=== PATIENT | male | born 1965 | race Caucasian/White ===

== ENCOUNTER 2022-12-07 14:39 | Observation (INO) | payer OTHER ==
--- OUTSIDE RECORDS SUMMARY | 2022-12-07 14:42 | XMS REPORT | Continuity of Care Document ---
:1965 Author Organization [facility] t Address [address] [place] [place] [address] Care Team Providers Name Role Phone Nhan Dominguez Attending Clinician Unavailable Devin De Luna Admitting Clinician Unavailable Payers Payer Name Policy Type Policy Number Effective Date Expiration Date S ource Problems This patient has no known problems. Allergies, Adverse Reactions, Alerts Allergy Allergy Status Severity Reaction(s) Onset Inactive Treating Comm ents Source Name Type Date Date Clinician No Known DA Active U [facility] Allergie 01-18 [facility] 00:00: d 00 [facility] Medications This patient has no known medications. Procedures This patient has no known procedures. Encounters Start End Encounter Admission Attending Care Care Encounter Source Date/Time Date/Time Type Type Clinicians Facility Department ID 2022-01-18 2022-01-18 Outpatient EL Nhan Dominguez [facility] LA0 [id number] [facility] 12:01:00 12:01:[address] [place] [address] Results Test Description Test Time Test Comments Results Result [facility] e Comments - CT ABD PELVIS W 2022-01-18 WO CONT 14:20:00 [facility] Rg : 1965 Sex: M Name: JANELLE BENTON [facility] Audie : 1965 Age/S: 56 / M [id number] Unit #: [id number] Loc: [place] [address] Phys: Nhan Dominguez MD Acct: [id number] Dis Date: Status: REG CLI PHONE #: [phone] Exam Date: 01/18/2022 4525 FAX #: Reason: KIDNEY STONE EXAMS: CPT: [id number] CT ABD PELVIS W WO CONT [id number] EXAMINATION: - CT ABD PELVIS W WO CONT. LOCATION: B2. HISTORY: KIDNEY STONE. COMPARISON: None. TECHNIQUE: CT abdomen and pelvis was performed without and with the use of IV contrast (100 mL Isovue 300). Sagittal and coronal reconstructed images were available for review. This exam was performed according to our departmental dose-optimization program, which includes automated exposure control, adjustment of the mA and/or kV according to patient size, and/or use of iterative reconstruction technique. Unless otherwise specified, incidental findings do not require dedicated imaging follow-up. FINDINGS: Lower chest: No acute pulmonary infiltrates are identified. Heart size is normal. Abdomen: There is diffuse hypoattenuation of the liver. Couple calcified right hepatic granulomas are seen. Punctate calcification is seen at the pancreatic head. 2.8 cm left adrenal gland myelolipoma is seen. There is focal cortical scarring in the right superior kidney. Six nonobstructive right lower renal stones are seen measuring up to 1.5 cm. The spleen, right adrenal gland, and left kidney appear within normal limits. There is long segment hypodense wall thickening of the ascending colon fatty changes in the colonic wall. There is no evidence of bowel obstruction. The appendix is mildly dilated at 8mm with no adjacent inflammatory changes to suggest appendicitis. No pneumoperitoneum or ascites is identified. There is no mesenteric or retroperitoneal adenopathy. There is a small fat-containing umbilical hernia. Pelvis: The urinary bladder appears normal. No inguinal adenopathy is identified. Bones/soft tissues: PAGE 1 Signed Report (CONTINUED) Name: JANELLE BENTON [facility] Audie : 1965 Age/S: 56 / M [id number] Unit #: [id number] Loc: [place] [address] Phys: Nhan Dominguez MD Acct: [id number] Dis Date: Status: REG CLI PHONE #: [phone] Exam Date: 01/18/2022 8139 FAX #: Reason: KIDNEY STONE EXAMS: CPT: [id number] CT ABD PELVIS W WO CONT 41607 (Continued) 4 mm focal sclerosis is seen in the right hemisacrum, likely representing a bone island. No acute osseous abnormality is identified. No aggressive lytic or blastic lesions are seen. IMPRESSION: Six nonobstructive right lower renal stones measuring up to 1.5 cm. Hepatic steatosis. 2.8 cm left adrenal gland myelolipoma. Chronic ascending colitis. Other findings as described. at 1420 Reported and signed by: Shabbir Cabral M.D. CC: Devin De Luna MD; Nhan Dominguez MD Technologist:Monika Peacock, RT(R) CTDI: DLP: Trnscb Date/Time: 01/18/2022 (142) [email or web address] Orig Print D/T: S: 01/18/2022 (5973) PAGE 2 Signed Report CREATININE W ESTIMATED GFR 2022-01-18 13:33:00 Test Item Value Reference Range Interpretation Comme nts GLOMERULAR FILTRATION RATE (test code = GFR) >=60 max estimate estG FR >60 CREATININE (test code = CREAT) 1.2 MG/DL 0.8-1.3 N
[2022-12-07] MEDS ORDERED: ASPIRIN 81 MG CHEWABLE TABLET ONE (15:31)
[2022-12-07 15:33] LABS: Hematocrit 51.5 % (39.6-49.0); Lymphocytes % 30.5 % (15.3-44.8); MCV 85.8 fL (80-100); MPV 7.9 fL (7.6-11.3); Platelets 197 thou/uL (152-406)
[2022-12-07 15:34] LABS: Protime INR 0.99
--- NOTE | 2022-12-07 16:08 | EDPHYS ---
Physician Documentation [facility] Name: Albaro Walden Jr Age: 57 yrs Sex: Male : 1965 Arrival Date: 12/07/2022 Time: 14:39 Bed 19 Private MD: ED Physician Nelson Gardner HPI: 12/07 15:11 This 57 yrs old Male presents to ER via Ambulatory with complaints of Chest Pain. snw 15:11 The patient or guardian reports chest pain that is located primarily in the anterior snw chest wall, left. Onset: intermittent CP over the week. + NTG several times today, mentioned to Dr. De Luna at appt. Pt sent to ED for eval.. The pain does not radiate. Severity of pain: At its worst the pain was moderate. The patient has been recently seen by a physician: the patient's primary care provider, Dr. De Luna. Pt with hx of AK x 7, Pt has 5 stents. All in [place], no past EKGs here.. Historical: - Allergies: 14:50 No Known Allergies; nj1 - PMHx: 14:50 Hypertensive disorder; Depressive disorder; Insomnia; Diabetes mellitus; nj1 Hypercholesterolemia; Congestive heart failure; Coronary atherosclerosis; - Immunization history:: Client reports receiving the 2nd dose of the Covid vaccine. - Social history:: Smoking status: Patient reports the use of cigarette tobacco products, smokes one-half pack cigarettes per day. ROS: 15:06 Constitutional: Negative for fever, chills, and weight loss, Eyes: Negative for injury, snw pain, redness, and discharge, ENT: Negative for injury, pain, and discharge, Neck: Negative for injury, pain, and swelling, Respiratory: Negative for shortness of breath, cough, wheezing, and pleuritic chest pain, Abdomen/GI: Negative for abdominal pain, nausea, vomiting, diarrhea, and constipation, Back: Negative for injury and pain, : Negative for injury, bleeding, discharge, and swelling, MS/Extremity: Negative for injury and deformity, Skin: Negative for injury, rash, and discoloration, Neuro: Negative for headache, weakness, numbness, tingling, and seizure, Psych: Negative for depression, anxiety, suicide ideation, homicidal ideation, and hallucinations. 15:06 Cardiovascular: Positive for chest pain. Exam: 15:06 Constitutional: This is a well developed, well nourished patient who is awake, alert, snw and in no acute distress. +cigarette smell Head/Face: Normocephalic, atraumatic. Eyes: Pupils equal round and reactive to light, extra-ocular motions intact. Lids and lashes normal. Conjunctiva and sclera are non-icteric and not injected. Cornea within normal limits. Periorbital areas with no swelling, redness, or edema. ENT: Nares patent. No nasal discharge, no septal abnormalities noted. Tympanic membranes are normal and external auditory canals are clear. Oropharynx with no redness, swelling, or masses, exudates, or evidence of obstruction, uvula midline. Mucous membranes moist. Neck: Trachea midline, no thyromegaly or masses palpated, and no cervical lymphadenopathy. Supple, full range of motion without nuchal rigidity, or vertebral point tenderness. No Meningismus. Chest/axilla: Normal chest wall appearance and motion. Nontender with no deformity. No lesions are appreciated. Cardiovascular: Regular rate and rhythm with a normal S1 and S2. No gallops, murmurs, or rubs. Normal PMI, no JVD. No pulse deficits. Respiratory: Lungs have equal breath sounds bilaterally, clear to auscultation and percussion. No rales, rhonchi or wheezes noted. No increased work of breathing, no retractions or nasal flaring. Abdomen/GI: Soft, non-tender, with normal bowel sounds. No distension or tympany. No guarding or rebound. No evidence of tenderness throughout. Back: No spinal tenderness. No costovertebral tenderness. Full range of motion. Skin: Warm, dry with normal turgor. Normal color with no rashes, no lesions, and no evidence of cellulitis. MS/ Extremity: Pulses equal, no cyanosis. Neurovascular intact. Full, normal range of motion. Neuro: Awake and alert, GCS 15, oriented to person, place, time, and situation. Cranial nerves II-XII grossly intact. Motor strength 5/5 in all extremities. Sensory grossly intact. Cerebellar exam normal. Normal gait. Psych: Awake, alert, with orientation to person, place and time. Behavior, mood, and affect are within normal limits. Vital Signs: 14:50 BP 163 / 97; Pulse 77; Resp 16; Temp 98.4; Pulse Ox 95% ; Weight 92.99 kg; Height 6 ft. nj1 3 in. ; Pain 0/10; 16:30 BP 126 / 94; Pulse 68; Resp 16; Pulse Ox 95% on R/A; db 17:00 BP 132 / 90; Pulse 69; Resp 16; Pulse Ox 95% on R/A; db 18:30 BP 139 / 88; Pulse 69; Resp 18; Pulse Ox 96% on R/A; db 19:00 BP 139 / 79; Pulse 78; Resp 16; Pulse Ox 98% ; vc1 14:50 Body Mass Index 25.62 (92.99 kg, 190.5 cm) nj1 14:50 Pain Scale: Adult nj1 MDM: 15:03 Patient medically screened. rn 15:14 Differential diagnosis: abnormal EKG, acute myocardial infarction, acute pericarditis, snw coronary artery disease chest wall pain, esophagitis. The patient was given aspirin in the Emergency Department. SANDRA Risk Score: 1 - Three or more CAD risk factors, 1- Known CAD, 1 - ASA use in past 7 days, 1 - Recent [<24hrs] Severe Angina. Data reviewed: vital signs, nurses notes. 15:58 Historians other than the Patient: Dr. De Luna, called from his office s/p EKG showed snw left BBB. Admit to hospital and consult Dr. Plunkett. 12/07 15:05 Order name: Basic Metabolic Panel; Complete Time: 18:11 snw 12/07 15:05 Order name: CBC with Diff; Complete Time: 15:40 snw 12/07 15:05 Order name: LFT's; Complete Time: 18:11 snw 12/07 15:05 Order name: Magnesium; Complete Time: 18:11 snw 12/07 15:05 Order name: NT PRO-BNP; Complete Time: 18:11 snw 12/07 15:05 Order name: PT-INR; Complete Time: 15:40 snw 12/07 15:05 Order name: Troponin HS; Complete Time: 18:11 snw 12/07 16:19 Order name: Basic Metabolic Panel EDMS 12/07 16:19 Order name: Basic Metabolic Panel EDMS 12/07 16:19 Order name: CBC with Automated Diff EDMS 12/07 16:19 Order name: CBC with Automated Diff EDMS 12/07 16:19 Order name: Troponin High Sensitivity EDMS 12/07 16:19 Order name: Troponin High Sensitivity; Complete Time: 18:11 EDMS 12/07 16:19 Order name: Troponin High Sensitivity EDMS 12/07 16:19 Order name: Troponin High Sensitivity EDMS 12/07 15:05 Order name: XRAY Chest (1 view); Complete Time: 16:34 snw 12/07 15:05 Order name: EKG; Complete Time: 15:06 snw 12/07 16:19 Order name: CONS Physician Consult EDMS 12/07 16:19 Order name: 60g Consistent Carbohydrate (ADA 1800/2000) EDMS 12/07 16:19 Order name: EKG Electrocardiogram EDMS 12/07 16:19 Order name: EKG Electrocardiogram EDMS 12/07 16:19 Order name: EKG Electrocardiogram EDMS 12/07 16:19 Order name: EKG Electrocardiogram EDMS 12/07 15:05 Order name: Cardiac monitoring; Complete Time: 15:10 snw 12/07 15:05 Order name: EKG - Nurse/Tech; Complete Time: 15:10 snw 12/07 15:05 Order name: IV Saline Lock; Complete Time: 15:25 snw 12/07 15:05 Order name: Labs collected and sent; Complete Time: 15:25 snw 12/07 15:05 Order name: O2 Per Protocol; Complete Time: 15:16 snw 12/07 15:05 Order name: O2 Sat Monitoring; Complete Time: 15:16 snw 12/07 15:36 Order name: Labs - recollect needed: recollect light green top; Complete Time: 16:57 bd EC:06 Rate is 73 beats/min. Rhythm is regular. QRS interval is prolonged. Clinical snw impression: No change from prior ECG, Left BBB, and Prioe EKG done at Dr. De Luna's office at 1404. Administered Medications: 15:25 Drug: Aspirin PO Chewable Tablet 324 mg Route: PO; db Disposition Summary: 12/07/22 16:07 Hospitalization Ordered Hospitalization Status: Observation snw Provider: Devin De Luna Location: Telemetry/MedSurg (observation) snw Condition: Stable snw Problem: an acute exacerbation snw Symptoms: are unchanged snw Bed/Room Type: Standard snw Room Assignment: 407(12/07/22 20:05) cg Diagnosis - Chest pain, unspecified snw - Left bundle-branch block, unspecified snw Forms: - Medication Reconciliation Form snw - SBAR form snw Addendum: 12/09/2022 10:36 Co-signature as Attending Physician, Nelson Gardner MD I reviewed the patient's care r n provided by the Advanced Practice Provider and agree with the diagnosis and treatment plan. Signatures: Dispatcher [employer] EDMS Massiel Abreu Shelly, NURSE'S ASSISTANT-C NURSE'S ASSISTANT-Csnw Nelson Gardner MD MD rn Garcia, Cindy, RN RN Vera England RN RN db Jaco, Norma RN RN nj1 Corrections: (The following items were deleted from the chart) 12/07 20:05 16:07 snw cg
--- NOTE | 2022-12-07 16:08 | ER ---
Nurse's Notes [facility] Name: Albaro Walden Jr Age: 57 yrs Sex: Male : 1965 Arrival Date: 12/07/2022 Time: 14:39 Bed 19 Private MD: Diagnosis: Chest pain, unspecified;Left bundle-branch block, unspecified Presentation: 12/07 14:50 Chief complaint: Patient states: Sent by PCP for abnormal EKG. Pt states he has been nj1 having chest on/off since Tuesday, no chest pain at this time, taken a couple nitros over the weekend. 14:50 Method Of Arrival: Ambulatory [facility] 14:50 Coronavirus screen: Vaccine status: Patient reports receiving the 2nd dose of the covid nj1 vaccine. Ebola Screen: Patient denies travel to an Ebola-affected area in the 21 days before illness onset. Initial Sepsis Screen: Does the patient meet any 2 criteria? No. Patient's initial sepsis screen is negative. Does the patient have a suspected source of infection? No. Patient's initial sepsis screen is negative. Risk Assessment: Do you want to hurt yourself or someone else? Patient reports no desire to harm self or others. Onset of symptoms was November 2022. 14:50 Acuity: VIK 3 nj1 Historical: - Allergies: 14:50 No Known Allergies; nj1 - PMHx: 14:50 Hypertensive disorder; Depressive disorder; Insomnia; Diabetes mellitus; nj1 Hypercholesterolemia; Congestive heart failure; Coronary atherosclerosis; - Immunization history:: Client reports receiving the 2nd dose of the Covid vaccine. - Social history:: Smoking status: Patient reports the use of cigarette tobacco products, smokes one-half pack cigarettes per day. Screenin:15 [facility] ED Fall Risk Assessment (Adult) History of falling in the last 3 months, vc1 including since admission No falls in past 3 months (0 pts) Confusion or Disorientation No (0 pts) Intoxicated or Sedated No (0 pts) Impaired Gait No (0 pts) Mobility Assist Device Used No (0 pt) Altered Elimination No (0 pt) Score/Fall Risk Level 0 - 2 = Low Risk Oriented to surroundings, Maintained a safe environment, Educated pt \T\ family on fall prevention, incl call for assistance when getting out of bed. Abuse screen: Denies threats or abuse. Nutritional screening: No deficits noted. Tuberculosis screening: No symptoms or risk factors identified. Assessment: 16:30 Reassessment: Patient appears in no apparent distress at this time. Patient and/or db family updated on plan of care and expected duration. Pain level reassessed. Patient is alert, oriented x 3, equal unlabored respirations, skin warm/dry/pink. General: Appears in no apparent distress. comfortable, Behavior is calm, cooperative. Pain: Complains of pain in chest Pain does not radiate. Pain began gradually. Neuro: Level of Consciousness is awake, alert, obeys commands, Oriented to person, place, time, situation. Cardiovascular: Reports chest pain, Denies shortness of breath. 17:28 Reassessment: PATIENT PROVIDED FOOD TRAY. db 17:30 Reassessment: Patient appears in no apparent distress at this time. Patient and/or db family updated on plan of care and expected duration. Pain level reassessed. Patient is alert, oriented x 3, equal unlabored respirations, skin warm/dry/pink. 18:30 Reassessment: Patient appears in no apparent distress at this time. Patient and/or db family updated on plan of care and expected duration. Pain level reassessed. Patient is alert, oriented x 3, equal unlabored respirations, skin warm/dry/pink. 19:17 Reassessment: Patient and/or family updated on plan of care and expected duration. Pain vc1 level reassessed. Patient is alert, oriented x 3, equal unlabored respirations, skin warm/dry/pink. 19:45 Reassessment: Pt removed all wires for vital signs and is pacing around room. He states vc1 he will stay but he doesn't want to. 20:09 Reassessment: Attempted to call report, Marco Antonio will call back. vc1 Vital Signs: 14:50 BP 163 / 97; Pulse 77; Resp 16; Temp 98.4; Pulse Ox 95% ; Weight 92.99 kg; Height 6 ft. nj1 3 in. ; Pain 0/10; 16:30 BP 126 / 94; Pulse 68; Resp 16; Pulse Ox 95% on R/A; db 17:00 BP 132 / 90; Pulse 69; Resp 16; Pulse Ox 95% on R/A; db 18:30 BP 139 / 88; Pulse 69; Resp 18; Pulse Ox 96% on R/A; db 19:00 BP 139 / 79; Pulse 78; Resp 16; Pulse Ox 98% ; vc1 14:50 Body Mass Index 25.62 (92.99 kg, 190.5 cm) nj1 14:50 Pain Scale: Adult [facility] ED Course: 14:57 Patient arrived in ED. kj1 15:02 Vera Haines, RN is Primary Nurse. db 15:03 Nelson Gardner MD is Attending Physician. rn 15:05 Katelynn Gao FNP-C is [facility]. snw 15:08 Triage completed. nj1 15:10 Arm band placed on right wrist. nj1 15:45 Missed attempt(s): 20 gauge in right forearm. sm8 15:45 Inserted saline lock: 20 gauge in left antecubital area, using aseptic technique. Blood sm8 collected. 15:45 Initial lab(s) drawn, Lab(s) recollected, by me, sent to lab. sm8 15:55 XRAY Chest (1 view) In Process Unspecified. EDMS 15:59 Devin De Luna MD is Hospitalizing Provider. snw 19:16 Patient has correct armband on for positive identification. Bed in low position. Call vc1 light in reach. Pulse ox on. NIBP on. 19:16 Patient maintains SpO2 saturation greater than 95% on room air. vc1 19:17 Report received from SOPHIA Gamez. vc1 20:51 No provider procedures requiring assistance completed. Patient admitted, IV remains in vc1 place. 20:53 Provided Education on: need heart cath. vc1 Administered Medications: 15:25 Drug: Aspirin PO Chewable Tablet 324 mg Route: PO; db Medication: 19:16 VIS not applicable for this client. vc1 Outcome: 16:07 Decision to Hospitalize by Provider. snw 20:52 Admitted to Tele accompanied by tech, via wheelchair, room 407, Report called to vc1 SOPHIA Bernard 20:52 Condition: good 20:52 Instructed on the need for admit. 20:54 Patient left the ED. vc1 Signatures: Dispatcher [employer] EDMS Katelynn Gao FNP-C FNP-CsnNelson Quan MD MD rn Jackson, Kandis kj1 Josette Mandujano RN RN vc1 Vera Haines RN RN db Jaco, Norma, RN RN nj1 Mills, Sophie sm8
[2022-12-07] MEDS ORDERED: ONDANSETRON 4 MG (ODT) TAB PO PRN (16:13)
[2022-12-07] MEDS ORDERED: ACETAMINOPHEN 500 MG TAB PO PRN (16:13)
--- NOTE | 2022-12-07 16:30 | RAD REPORT ---
EXAM DESCRIPTION: Robert Single View12/07/2022 3:53 pm CLINICAL HISTORY: CHEST PAIN COMPARISON: No comparisons TECHNIQUE: Portable AP view of the chest. FINDINGS: The lungs show no focal consolidation. Central interstitial prominence. No pneumothorax or effusion. The cardiomediastinal contours are unremarkable. IMPRESSION: Central interstitial prominence which may reflect early edema or volume overload.
[2022-12-07 16:34] LABS: Albumin 3.6 g/dL (3.4-5.0); Bilirubin Direct 0.2 mg/dL (0-0.2); Bilirubin Indirect, Calculated 0.5 mg/dL (0.2-0.8); Bilirubin Total 0.7 mg/dL (0.2-1.0); Magnesium 1.8 mg/dL (1.6-2.4); Potassium 3.7 mEq/L (3.5-5.1); Protein, Total 7.2 g/dL (6.4-8.2)
[2022-12-07 17:00] LABS: Troponin High Sensitivity 25.9 (<58.9)
[2022-12-07] MEDS ORDERED: D10W 250 ML BAG IV PRN (18:24)
[2022-12-07] MEDS ORDERED: NITROGLYCERIN 0.4 MG/TAB SL PRN (18:24)
[2022-12-07] MEDS ORDERED: GLUCAGON 1 MG/VIAL IM PRN (18:24)
[2022-12-07] MEDS ORDERED: HYDROCODONE/APAP 5/325 MG TAB PO PRN (18:24)
[2022-12-07] MEDS ORDERED: methocarbamoL 500 MG TAB PO PRN (18:24)
[2022-12-07] MEDS ORDERED: TRAZODONE 150 MG TAB PO PRN (18:24)
--- NOTE | 2022-12-07 18:43 | P.HP ---
Certification for Inpatient Patient admitted to: Inpatient With expected LOS: >2 Midnights Patient will require the following post-hospital care: None Practitioner: I am a practitioner with admitting privileges, knowledge of patient current condition, hospital course, and medical plan of care. Services: Services provided to patient in accordance with Admission requirements found in Title 42 Section 412.3 of the Code of Federal Regulations Patient History Date of Service: 12/07/22 Primary Care Provider: Cali[place]o Reason for admission: Unstable angina History of Present Illness: Patient came to the office today for routine visit. He had an in office a1c of 9.8. which is increasing. Was not able to afford his ozempic. while there her reported he had chest pain on exertion and had taken 3 NTG SL in the last 2 days. the patient had an EKG which showed new LBBB and some elevation in V1-V3. As there was no previous ekg to compare the patient was directed to the ER. He has 2 negative troponins so far. However as he has a history of CAD with stent, uncontrolled dm2 and continues to smoke. will Admit him for cardiac work up Allergies No Known Allergies Allergy (Unverified 12/07/22 17:48) Review of Systems 10-point ROS is otherwise unremarkable Cardiovascular: Chest Pain Physical Examination - Physical Exam General: Alert, In no apparent distress HEENT: Atraumatic, PERRLA, Mucous membr. moist/pink, EOMI, Sclerae nonicteric Neck: Supple, 2+ carotid pulse no bruit, No LAD, Without JVD or thyroid abnormality Respiratory: Clear to auscultation bilaterally, Normal air movement Cardiovascular: Regular rate/rhythm, Normal S1 S2 Gastrointestinal: Normal bowel sounds, No tenderness Musculoskeletal: No tenderness Integumentary: No rashes Neurological: Normal gait, Normal speech, Normal strength at 5/5 x4 extr, Normal tone, Normal affect Lymphatics: No axilla or inguinal lymphadenopathy - Studies Laboratory Data (last 24 hrs) 12/07/22 12/07/22 12/07/22 15:25 15:21 15:21 WBC 9.70 Hgb 17.1 Hct 51.5 H Plt Count 197 PT 10.9 INR 0.99 Sodium 135 L Potassium 3.7 BUN 10 Creatinine 0.89 Glucose 204 H Magnesium 1.8 Total Bilirubin 0.7 AST 12 L ALT 24 Alkaline Phosphatase 78 Assessment and Plan - Problems (Diagnosis) (1) 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 Plunkett. Will admit him. hopefully will get a cardiac cath for the patient (2) Type 2 diabetes mellitus without complications Current Visit: Yes Status: Chronic Plan: restart home insulin. will hold the metformin and start him on fluids. in consideration of the cath. Will start the patient on jardiance as he cannot afford ozempic Qualifiers: Diabetes mellitus technician terminal and repeater insulin use: with technician terminal and repeater use Qualified Code(s): E11.9 - Type 2 diabetes mellitus without complications; Z79.4 - long term (current) use of insulin (3) HTN (hypertension) Current Visit: Yes Status: Chronic Plan: will restart his home medications and adjust as needed. Qualifiers: Hypertension type: primary hypertension Qualified Code(s): I10 - Essential (primary) hypertension (4) Hyperlipidemia Current Visit: Yes Status: Chronic Plan: restart his home atorvastatin Qualifiers: Hyperlipidemia type: moderate mixed hyperlipidemia not requiring statin therapy Qualified Code(s): E78.2 - Mixed hyperlipidemia (5) Nicotine dependence Current Visit: Yes Status: Acute Plan: start a nicotine patch for the patient Qualifiers: Nicotine product type: cigarettes Substance use status: uncomplicated Qualified Code(s): F17.210 - Nicotine dependence, cigarettes, uncomplicated Discharge Plan: Home Plan to discharge in: 24 Hours - Advance Directives Does patient have a Living Will: No Does patient have a Durable POA for Healthcare: No - Code Status/Comfort Care Code Status Assessed: No Code Status: Full Code Physician Review: Patient Assessed, Agree with Above Assessment and Plan Critical Care: Yes Time Spent Managing Pts Care (In Minutes): 75
[2022-12-07] MEDS ORDERED: NA CHLORIDE 0.9% 1,000 ML IV SCH (19:00)
[2022-12-07 19:33] VITALS: BMI 25.6
[2022-12-07] MEDS ORDERED: ENOXAPARIN 100 MG/ML SYR SQ ONE (20:00)
[2022-12-07] MEDS ORDERED: ATORVASTATIN 80 MG TAB PO SCH (21:00)
[2022-12-07] MEDS: cloNIDine HCL 0.1 MG TAB PO SCH (21:01)
[2022-12-07] MEDS ORDERED: DIPHENHYDRAMINE 25 MG TAB/CAP PO ONE (21:28)
[2022-12-07] MEDS: INSULIN -REGULAR HUMAN 50 UNIT/0.5 ML ML SQ SCH (21:30)
[2022-12-07 22:04] VITALS: O2SAT 98
[2022-12-08 04:41] VITALS: TEMP 98
[2022-12-08] MEDS ORDERED: carvediloL 3.125 MG TAB PO SCH (06:00)
[2022-12-08 06:08] LABS: Absolute Lymphocytes (CBC) 2.8 K/uL (0.7-4.9); Lymphocytes % 33.3 % (15.3-44.8); MCV 87.3 fL (80-100); Platelets 181 thou/uL (152-406); RBC Red Blood Cell Count 5.72 M/uL (4.33-5.43)
[2022-12-08 06:34] LABS: Potassium 3.5 mEq/L (3.5-5.1); Thyroid Stimulating Hormone 2.59 uIU/mL (0.358-3.740); Troponin High Sensitivity 27.4 pg/mL (<58.9)
[2022-12-08] MEDS ORDERED: FENTANYL CITR 100 MCG/2 ML ONE (07:36)
[2022-12-08] MEDS ORDERED: MIDAZOLAM HCL 2 MG/2 ML INJ ONE (07:36)
[2022-12-08] MEDS ORDERED: HEPA 1000U/500MLS 0 UNIT/0 ML BAG IV ONE (07:36)
[2022-12-08] MEDS ORDERED: CLOPIDOGREL 75 MG TABLET ONE (07:37)
[2022-12-08] MEDS ORDERED: HEPARIN 10,000 UNIT/10 ML VIAL IV ONE (07:37)
[2022-12-08] MEDS: INSULIN -REGULAR HUMAN 50 UNIT/0.5 ML ML SQ SCH (08:01)
[2022-12-08] MEDS: cloNIDine HCL 0.1 MG TAB PO SCH (08:03)
[2022-12-08 08:05] VITALS: BP 172/91
--- NOTE | 2022-12-08 08:21 | P.DS ---
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 Current Visit: Yes Status: Acute (2) Type 2 diabetes mellitus without complications Current Visit: Yes Status: Chronic Qualifiers: Diabetes mellitus shelter insulin use: with long term care social worker use Qualified Code(s): E11.9 - Type 2 diabetes mellitus without complications; Z79.4 - shelter (current) use of insulin (3) HTN (hypertension) Current Visit: Yes Status: Chronic Qualifiers: Hypertension type: primary hypertension Qualified Code(s): I10 - Essential (primary) hypertension (4) Hyperlipidemia Current Visit: Yes Status: Chronic Qualifiers: Hyperlipidemia type: moderate mixed hyperlipidemia not requiring statin therapy Qualified Code(s): E78.2 - Mixed hyperlipidemia (5) Nicotine dependence Current Visit: Yes Status: Acute Qualifiers: Nicotine product type: cigarettes Substance use status: uncomplicated Qualified Code(s): F17.210 - Nicotine dependence, cigarettes, uncomplicated (6) Noncompliance by refusing intervention or support Current Visit: Yes Status: Acute Brief History of Present Illness: Patient came to the office today for routine visit. He had an in office a1c of 9.8. which is increasing. Was not able to afford his ozempic. while there her reported he had chest pain on exertion and had taken 3 NTG SL in the last 2 days. the patient had an EKG which showed new LBBB and some elevation in V1-V3. As there was no previous ekg to compare the patient was directed to the ER. He has 2 negative troponins so far. However as he has a history of CAD with stent, uncontrolled dm2 and continues to smoke. will Admit him for cardiac work up Hospital Course: Patient was sent to the Hospital for unstable angina. Dr. Plunkett came early to try to give him a cath. The patient refused. Feels he did not need a cath. Though both myself and Dr. Plunkett feel he needs a cath the patient is allowed to refuse medical care. Will discharge him home and see if he will follow up. Dr. Plunkett will most likely recommend an out patient cath. The patient has been referred to the transitional care liaison in the past. Has simply not taken the medications. Vital Signs/Physical Exam: Temp Pulse Resp BP Pulse Ox 98.0 F 71 18 172/91 H 96 12/08/22 04:00 12/08/22 08:03 12/08/22 04:00 12/08/22 08:03 12/08/22 04:00 General: Alert, In no apparent distress HEENT: Atraumatic, PERRLA, EOMI Neck: Supple, JVD not distended Respiratory: Clear to auscultation bilaterally, Normal air movement Cardiovascular: Regular rate/rhythm, Normal S1 S2 Gastrointestinal: Normal bowel sounds, No tenderness Musculoskeletal: No tenderness Integumentary: No rashes Neurological: Normal speech, Normal tone, Normal affect Lymphatics: No axilla or inguinal lymphadenopathy Laboratory Data at Discharge: WBC 8.50 thou/uL (4.3-10.9) 12/08/22 05:17 Hgb 16.1 g/dL (13.6-17.9) 12/08/22 05:17 Hct 50.0 % (39.6-49.0) H 12/08/22 05:17 Plt Count 181 thou/uL (152-406) 12/08/22 05:17 PT 10.9 SECONDS (9.5-12.5) 12/07/22 15:21 INR 0.99 12/07/22 15:21 Sodium Cancelled 12/08/22 06:00 Potassium Cancelled 12/08/22 06:00 BUN Cancelled 12/08/22 06:00 Creatinine Cancelled 12/08/22 06:00 Glucose Cancelled 12/08/22 06:00 Magnesium 1.8 mg/dL (1.6-2.4) 12/07/22 15:25 Total Bilirubin 0.7 mg/dL (0.2-1.0) 12/07/22 15:25 AST 12 U/L (15-37) L 12/07/22 15:25 ALT 24 U/L (16-61) 12/07/22 15:25 Alkaline Phosphatase 78 U/L (45-117) 12/07/22 15:25 Home Medications: Amlodipine [Norvasc*] 1 tab PO DAILY 12/07/22 Atorvastatin Calcium [Lipitor] 1 tab PO BEDTIME 12/07/22 Bupropion *Xl* [Wellbutrin XL*] 1 tab PO DAILY 12/07/22 Carvedilol [Coreg] 1 tab PO BID 12/07/22 Chlorthalidone 1 tab PO DAILY 12/07/22 Gabapentin 300 mg PO BID 12/07/22 Insulin Detemir [Levemir Flexpen] 40 units SQ DAILY 12/07/22 Metformin HCl 1,000 mg PO BID 12/07/22 Montelukast [Singulair*] 1 tab PO DAILY 12/07/22 Sertraline [Zoloft*] 1 tab PO DAILY 12/07/22 Trazodone [Desyrel*] 150 mg PO BEDTIME 12/07/22 lisinopriL [Lisinopril] 1 tab PO DAILY 12/07/22 methocarbamoL [Methocarbamol] 1 tab PO DAILY 12/07/22 Sitagliptin Phosphate [Januvia] 25 mg PO DAILY 90 Days #90 tab 12/08/22 New Medications: Sitagliptin Phosphate [Januvia] 25 mg PO DAILY 90 Days #90 tab Diet: ADA Activity: Ad geraldine Followup: Devin De Luna MD [Primary Care Provider] - 1 Week (Call for appointment. ) Lorenzo Plunkett MD [ACTIVE - CAN ADMIT] - 1-2 Weeks (Call for appointment.) Time spent managing pt's care (in minutes): 30
[2022-12-08] MEDS ORDERED: CLOPIDOGREL 75 MG TABLET PO SCH (09:00)
[2022-12-08] MEDS ORDERED: lisinopriL 20 MG TAB PO SCH (09:00)
[2022-12-08] MEDS ORDERED: AMLODIPINE 10 MG TAB PO SCH (09:00)
[2022-12-08] MEDS ORDERED: INSULIN GLARGINE 100 UNIT/ML SQ SCH (09:00)
[2022-12-08] MEDS ORDERED: SERTRALINE HCL 50 MG TAB PO SCH (09:00)
[2022-12-08] MEDS ORDERED: ASPIRIN EC 81 MG TAB PO SCH ×2 (09:00)
[2022-12-08] MEDS ORDERED: CHLORTHALIDONE 25 MG TAB PO SCH (09:00)
[2022-12-08] MEDS ORDERED: NICOTINE 14 MG/PAT TD SCH (09:00)
--- NOTE | 2022-12-08 18:09 | EKG ---
Test Date: 2022-12-07 Test Time: 14:58:56 Cylinder Devalver: KOFFI MEASUREMENT RESULTS: Intervals: Rate: 73 OK: 148 QRSD: 156 QT: 434 QTc: 478 Boling: P: 60 OK: 148 QRS: 67 T: 247 INTERPRETIVE STATEMENTS: Normal sinus rhythm Left bundle branch block Abnormal ECG No previous ECG available for comparison Electronically Signed On 12-08-22 18:07:33 CDT by Lorenzo Plunkett
== END 2022-12-08 08:22 | disposition home or self-care (01) ==
LOC: ER 14:39 → ERHOLD 16:20 → 4TH 20:13
PROVIDERS: ADMIT Internal Medicine; ATTEND Internal Medicine
DX: I25.720 Atherosclerosis of autologous artery coronary artery bypass graft(s) with unstable angina pectoris (principal); E11.9 Type 2 diabetes mellitus without complications; I10 Essential (primary) hypertension; E78.5 Hyperlipidemia, unspecified; F17.210 Nicotine dependence, cigarettes, uncomplicated; Z95.5 Presence of coronary angioplasty implant and graft; Z79.4 Long term (current) use of insulin
CPT/HCPCS: 93005; 85025 ×2; 80048 ×2; 36415; 83735; 85610; 82947 ×2; 80076; 84443; 84484 ×4; 83880; 71045; 99285; J1815 ×2; J7030; J2250; J3010